=== PATIENT | female | born 1945 | race Caucasian/White ===

== ENCOUNTER 2025-09-16 13:57 | Outpatient (REF) | payer OTHER, SELFPAY | END 2025-09-16 13:58 | disposition home or self-care (01) | LOC: HO.HKASLDS 13:57 | PROVIDERS: PCP Student in an Organized Health Care Education/Training Program; Visit Provider Student in an Organized Health Care Education/Training Program | DX: R03.0 Elevated blood-pressure reading, without diagnosis of hypertension (principal); R41.3 Other amnesia; M19.90 Unspecified osteoarthritis, unspecified site; M54.50 Low back pain, unspecified; M21.612 Bunion of left foot; L60.2 Onychogryphosis; R54 Age-related physical debility; H61.21 Impacted cerumen, right ear | CPT/HCPCS: 96127; 99202; 99211 ==

== ENCOUNTER 2025-09-16 13:57 | Outpatient (AMB) | payer OTHER, SELFPAY ==
--- NOTE | 2025-09-16 14:29 | MHC.PC.OV ---
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 Wet Process Assistant Head Miller Required: No Allergies No Known Allergies Allergy (Verified 09/16/25 14:32) Medication List - Last Reconciled 09/16/25 by Germain Mcneil MD acetaminophen ER 650 mg PO Q12H Tobacco use date assessed: 09/16/25 Fall risk assessment: 1 Fall in past year Last assessed Fall Risk: 09/16/25 Dental Screening Dental Screen Date: 09/16/25 Did you have a dental visit in the last 12 months?: No Did you have a dental problem in the last 6 months where you did not have access to dental care?: No Was dental information given to patient?: No HPI HPI Comments History of Present Illness Details History of Present Illness The patient is a 80 year old female presenting for an initial visit to establish care after not seeing a doctor for approximately 50 years, prompted by concerns about memory problems and functional decline. Lack of routine medical care: The patient has not seen a doctor in about 50 years. She has no known medical history and takes no medications. She believes she may have had a Pap smear about four years ago but does not remember having a mammogram and has never had a colonoscopy or a bone scan. Memory impairment: The patient presents with memory problems, which prompted her family to bring her in. She moved in with her stepmom and niece two months ago because she requires 24-hour care, including assistance with personal hygiene. During the assessment, she was unable to state the current date or month and was unaware of a recent holiday. Musculoskeletal and pain history: The patient reports being loaded with arthritis. For the past two days, she has experienced pressure-like pain in her back that does not radiate. She has taken an agxn-lmn-fkqvtgu arthritis pill in the past but is not currently taking anything for the pain. She reports a history of a fall in a bathtub, where she hit her ribs, and a separate fall from a ladder a long time ago, which required a doctor to manipulate her ribs back into place. Recurrent cerumen impaction: The patient has a history of her ears blocking up since childhood, for which she received treatment to remove wax. She continues to experience intermittent blockage. Surgical History: - Patient denies any history of surgeries. Medications: - Patient reports no current medications. - She previously took an koev-fto-fxhtffc arthritis pill but does not know the name. 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 - Living Situation: Lived with her daughter until two months ago, now resides with her stepmom and niece who provide 24-hour care. - Functional Status: Requires assistance with activities of daily living, including washing. - Habits: History of biting her nails since she was young. - Exercise: Does not engage in any exercise. Family History: - Reports a family history of heart disease. - Denies family history of cancer. Diagnostic Results: - Vitals: Very elevated blood pressure noted during the visit. Past Medical History - Lack of medical care for approximately 50 years. 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 - Hospitalization: Only for childbirth. - Screenings: Possible Pap smear 4 years ago; denies or does not recall mammogram, colonoscopy, or bone scan. - History of falls: One fall in a bathtub and another from a ladder. - Arthritis, unspecified. Health Maintenance - Patient has not seen a physician in approximately 50 years. - At age 80, screening for cervical cancer with Pap smears and breast cancer with mammograms is no longer indicated. - Patient has never had a colonoscopy screening; family history is negative for colon cancer. - Patient has never had a bone density scan. - Comprehensive blood work was ordered for baseline health screening. [facility] Surgical History (Updated 09/16/25 @ 14:35 by Neno Galdamez CMA) No pertinent past surgical history Social History (Updated 09/16/25 @ 14:36 by Neno Galdamez CMA) Housing: House Alcohol intake: never Patient Tobacco Use Status: Current everyday Tobacco user Cigarette Packs Per Day: 0.5 e-Cigarette/Vaping Use: Never Used service: No Current occupational status: disabled Current occupational exposures/hazards: No Cognitive needs: Yes Hearing needs: Yes Vision needs: Yes Questionnaire PHQ-9 Over the last 2 weeks, how often have you been bothered by any of the following problems? 1. Little interest or pleasure in doing things: not at all 2. Feeling down, depressed, or hopeless: more than half the days 3. Trouble falling or staying asleep, or sleeping too much: more than half the days 4. Feeling tired or having little energy: not at all 5. Poor appetite or overeating: several days 6. Feeling bad about yourself - or that you are a failure or have let yourself or your family down: not at all 7. Trouble concentrating on things, such as reading the newspaper or watching television: more than half the days 8. Moving or speaking so slowly that other people could have noticed. Or the opposite - being so fidgety or restless that you have been moving around a lot more than usual: not at all 9. Thoughts that you would be better off or of hurting yourself in some way: not at all Total score: 7 Depression Screening Interpretation: Negative Depression Screening Done: Yes Source: Developed by Drs. Lan Morrow, Anabel Jaquez, Jose Dickinson and colleagues, with an educational mica from [employer]. Thrive Questionnaire I am a: Parent/Caregiver What is your living situation today?: I have a steady place to live Within the past 12 months, did the food you bought not last and you didn't have the money to get more?: Never true Within the past 12 months, did you worry whether your food would run out before you got money to buy more?: Never true Do you have trouble paying for medicines?: No Do you have trouble getting transportation to medical appointments?: No Do you have trouble paying your heating and electricity bill?: No Do you have trouble taking care of your child, family member or friend?: No Do you have trouble with day-to-day activities such as bathing, preparing meals, shopping, managing finances, etc.?: Yes Are you currently unemployed and looking for a job?: No Are you interested in more education?: No Currently or been in a relationship where the following occur: No concerns reported THRIVE Score: 0 AUDIT C Alcohol Use Questionnaire (AUDIT-C) 1. How often do you have a drink containing alcohol?: Never 3. How often do you have six or more drinks on one occasion?: Never Total Score: 0 RUDY-7 AMB Questionnaire RUDY-7 Feeling nervous, anxious, or on edge: 1 = Several days Not being able to stop or control worryin = Not at all Worrying too much about different things: 0 = Not at all Trouble relaxin = More than half the days Being so restless that it is hard to sit still: 0 = Not at all Becoming easily annoyed or irritable: 0 = Not at all Feeling afraid as if something awful might happen: 0 = Not at all Total RUDY-7 score (0-4 normal; 5-9 mild; 10-14 moderate; 15-21 severe): 3 Source: Developed by Drs. Lan Morrow, Anabel Jaquez, Jose Dickinson and colleagues, with an educational mica from [employer]. Review of Systems Narrative Review of Systems - Constitutional: Denies recent falls. - Neurological: Family reports memory problems; patient denies other neurological symptoms. - HEENT: Reports intermittent ear blockage. - Gastrointestinal: Reports normal bowel function. - Genitourinary: Reports normal urinary function. - Musculoskeletal: Reports arthritis and new onset of back pain with pressure sensation for two days. - Sleep: Reports sleeping well. 10-point ROS reviewed and negative except as noted in HPI Physical exam (Primary Care) Vital Signs: Last Vital Signs Temp 97.4 F 09/16/25 14:36 Pulse 74 09/16/25 14:36 Resp 16 09/16/25 14:36 BP 164/74 H 09/16/25 14:36 Pulse Ox 97 09/16/25 14:36 Oxygen Delivery Method Room Air 09/16/25 14:36 BMI result Body Mass Index 22.5 Tobacco/Smoking Status: Tobacco use Status Tobacco use date assessed 09/16/25 09/16/25 14:38 Patient Tobacco Use Status Current everyday Tobacco 09/16/25 14:38 e-Cigarette/Vaping Use Never Used 09/16/25 14:38 PHQ-9: PHQ-9 Score PHQ-9: Total score 7 09/16/25 15:05 Depression Screening Interpretation: Negative Currently or been in a relationship where the following occur: No concerns reported Narrative Physical Exam General: Well-appearing, in no acute distress. Vital signs: Elevated blood pressure noted. HEENT: Normocephalic, atraumatic. PERRLA, EOMI. Conjunctiva clear, sclera anicteric. Oropharynx clear, mucous membranes moist. TMs intact bilaterally. Right ear with significant ear wax buildup. Neck: Supple, no lymphadenopathy, no thyromegaly, no JVD or carotid bruits. Cardiovascular: RRR, normal S1/S2, no murmurs, rubs, or gallops. Peripheral pulses 2+ and symmetric. No edema. Respiratory: Lungs clear to auscultation bilaterally, no wheezes, rales, or rhonchi. Normal effort. Abdomen: Soft, non-tender, non-distended. Normoactive bowel sounds. No hepatosplenomegaly, no masses. MSK: Full range of motion, no joint swelling or deformity. Normal gait. Complains of back pain with pressure sensation, not radiating. Skin: Warm, dry, intact. No rashes, lesions, or pallor. Neuro: Alert and oriented x2 (disoriented to date and recent events). Cranial nerves II-XII intact. Strength 5/5 throughout. Sensation intact. Reflexes 2+ symmetric. Normal coordination and gait. Psych: Appropriate mood and affect. Normal judgment and insight. Memory issues noted. Coding Level of Care Code New Pt Level 4 (58155) Add On Problem Visit Only Diagnoses Memory impairment R41.3 Cerumen impaction H61.20 Elevated blood pressure reading R03.0 Arthritis M19.90 Low back pain M54.50 Bunion, left foot M21.612 Thickened nails L60.2 Frail elderly R54 Assessment & Plan Assessment & Plan (1) Memory impairment: Code(s): R41.3 - Other amnesia Category: Medical (2) Cerumen impaction: Code(s): H61.20 - Impacted cerumen, unspecified ear Category: Medical (3) Elevated blood pressure reading: Code(s): R03.0 - Elevated blood-pressure reading, without diagnosis of hypertension Category: Medical (4) Arthritis: Code(s): M19.90 - Unspecified osteoarthritis, unspecified site Category: Medical (5) Low back pain: Code(s): M54.50 - Low back pain, unspecified Category: Medical (6) Bunion, left foot: Code(s): M21.612 - Bunion of left foot Category: Medical (7) Thickened nails: Code(s): L60.2 - Onychogryphosis Category: Medical (8) Frail elderly: Code(s): R54 - Age-related physical debility Category: Medical Plan Consent The plan for a comprehensive blood examination was discussed, including checking white and red blood cells, hemoglobin, platelets, a comprehensive metabolic panel for liver, kidney, and electrolyte function, thyroid levels, HbA1c, a lipid panel, and screening for hepatitis B, hepatitis C, HIV, and syphilis. The patient provided verbal consent to proceed with the blood draw. Patient was informed and verbally consented to the use of an ambient scribe for clinic note documentation during this visit. Plan 1. Establishment Of Care / Wellness Visit - Ordered comprehensive blood work, including CBC, CMP, thyroid panel, HbA1c, lipid panel, and screening for hepatitis B, C, HIV, and syphilis. - Patient was advised that fasting is not required for the labs. - Referred to community nurse navigator to arrange for social support, including potential visiting nurse services, home service advisor, and durable medical equipment. - Ordered durable medical equipment including a shower chair, grab bar, and a portable bedside commode to reduce fall risk. - Scheduled follow-up in 2 weeks to review lab results and reassess. 2. Memory Impairment - Performed a brief cognitive screen which revealed disorientation to date, month, and recent events. - Comprehensive lab work will help to rule out metabolic or infectious etiologies. 3. Cerumen Impaction, Right Ear - Prescribed Debrox ear drops, instructing the patient to use 5 drops in the right ear twice a day for 5 days prior to the follow-up visit to soften the wax. - Plan for in-office ear cleaning at the follow-up visit if the impaction persists. 4. Elevated Blood Pressure Reading - Acknowledged the patient's blood pressure was very elevated but will not treat at this time due to potential for white coat hypertension. - Will monitor blood pressure trends on subsequent visits and consider providing a home monitoring kit if a trend of hypertension is observed. 5. Arthritis And Low Back Pain - Prescribed Tylenol 650 mg for pain management. - Avoided NSAIDs like ibuprofen due to unknown kidney function. 6. Bunion, Left Foot And Nail Care - Placed a referral to podiatry for management of her nails and left foot bunion. Discussion Notes I met with the patient, a 80-year-old female, and her family for her first medical visit in approximately 50 years. I explained that because she has not been seen for a long time and there is nothing acute, the first step is to perform a comprehensive blood exam to check her overall health, including blood counts, organ function, electrolytes, sugar, cholesterol, and infectious diseases, to which she verbally consented. I addressed the family's concerns about her functional status and need for support at home by referring them to our community nurse navigator, Sushma, who can assist with arranging services like a home service advisor and obtaining durable medical equipment such as a shower chair, grab bar, and bedside commode to improve safety. I noted her very elevated blood pressure but explained that I would not start medication immediately as it could be due to nervousness, and we will monitor the trend. For her complaints of arthritis pain, I prescribed Tylenol 650 mg, explaining that I am avoiding NSAIDs like ibuprofen until we have information on her kidney function. I also recommended a podiatry referral for her foot and nail care. I have scheduled a follow-up visit in two weeks to review the lab results. Patient Instructions - Please go to the lab to have your blood drawn for a comprehensive check-up; you do not need to fast (stop eating) before this test. - For your clogged right ear, use Debrox ear drops. Put 5 drops in the ear two times a day for the 5 days before your next appointment. - For pain from arthritis, you may take Tylenol 650 mg. Do not take ibuprofen at this time. - A referral will be made for you to see a foot doctor (internet marketing coordinator). - Our community nurse navigator, Sushma, will be in touch with your family to help you get services and equipment for your home, such as a shower chair, grab bar, and a toilet for your bedside. - Please return to the clinic in 2 weeks for a follow-up visit to discuss your lab results. Medical Decision Making The patient is a 80-year-old female with a complex presentation, primarily characterized by a 50-year lapse in medical care and recent onset of functional decline and memory impairment as reported by her family, who recently became her caregivers. The primary goals of this initial visit were to establish care, perform a baseline comprehensive assessment, and address immediate safety concerns. Given the lack of medical history, a broad laboratory workup (CBC, CMP, A1c, lipids, thyroid, infectious disease screen) is essential to screen for common chronic diseases and identify any reversible causes for her cognitive changes. The very elevated blood pressure is concerning, but given the context of a first visit after decades, I will monitor for a trend before initiating antihypertensive therapy to avoid treating a potential 'white coat' phenomenon. For her musculoskeletal pain, I chose acetaminophen over an NSAID due to the unknown status of her renal function, which will be evaluated in the ordered labs. [place] safety interventions include ordering durable medical equipment (shower chair, grab bar, bedside commode) to reduce her high fall risk at home and a referral to the community nurse navigator to connect the family with crucial support services. A podiatry referral is indicated for her bunion and general foot care, which is important in an elderly patient. Follow-up is scheduled in two weeks to review labs and re-assess her clinical status. Total Time Statement 30 min Total time spent caring for the patient today includes pre-visit chart review, documentation, review of laboratory and diagnostic imaging results, medication reconciliation, medically necessary evaluation, counseling on diagnoses, care coordination, ordering appropriate tests and medications, review of tests performed by other providers, reporting test results to the patient, and communication with other healthcare providers. Orders: Orders Hepatitis B Surface Antigen 09/16/25 Z13.9 - Encounter for screening, unspecified Syphilis Screen 09/16/25 Z13.9 - Encounter for screening, unspecified Comprehensive Met. Panel 09/16/25 Z13.9 - Encounter for screening, unspecified TSH reflex Free T4 09/16/25 Z13.9 - Encounter for screening, unspecified UA CC w/rflx Micro + Cult 09/16/25 Z13.9 - Encounter for screening, unspecified Vitamin B12 and Folate 09/16/25 Z13.9 - Encounter for screening, unspecified Hemoglobin A1c 09/16/25 Z13.9 - Encounter for screening, unspecified Vitamin D 25-OH (D2 and D3) 09/16/25 Z13.9 - Encounter for screening, unspecified Complete Blood Count Auto Diff 09/16/25 Z13.9 - Encounter for screening, unspecified Hepatitis C Antibody 09/16/25 Z13.9 - Encounter for screening, unspecified HIV Ab/Ag 09/16/25 Z13.9 - Encounter for screening, unspecified Lipid Panel 09/16/25 Z13.9 - Encounter for screening, unspecified Magnesium 09/16/25 Z13.9 - Encounter for screening, unspecified Hepatitis B Surface Antibody 09/16/25 Z13.9 - Encounter for screening, unspecified Referrals Nurse Navigator Referral Z71.89 - Other specified counseling Podiatry Referral L60.2 - Onychogryphosis Medications: New acetaminophen ER 650 mg PO Q12H 90 tabs 0RF carbamide peroxide 6.5% (Debrox) 5 drps otic (ear) right BID 15 mL 0RF 4 days [shower chair] As directed 1 ea 0RF R54 - Age-related physical debility [shower grab bar] As directed 1 ea 0RF R54 - Age-related physical debility [bedside commode] As directed 1 ea 0RF M19.90 - Unspecified osteoarthritis, unspecified site, R41.3 - Other amnesia, R54 - Age-related physical debility
[2025-09-16 14:36] VITALS: BP 164/74; PULSE 74; RESP 16; TEMP 36.3; O2SAT 97; BMI 22.5
== END 2025-09-16 15:19 | disposition home or self-care (01) ==
PROVIDERS: PCP Student in an Organized Health Care Education/Training Program; Visit Provider Student in an Organized Health Care Education/Training Program
DX: R41.3 Other amnesia (principal); H61.20 Impacted cerumen, unspecified ear; R03.0 Elevated blood-pressure reading, without diagnosis of hypertension; M19.90 Unspecified osteoarthritis, unspecified site; M54.50 Low back pain, unspecified; M21.612 Bunion of left foot; L60.2 Onychogryphosis; R54 Age-related physical debility

== ENCOUNTER 2025-09-20 13:54 | Outpatient (REF) | payer OTHER, SELFPAY ==
[2025-09-20 17:44] LABS: MANUAL DIFF FLAG NO
[2025-09-20 18:09] LABS: Appearance Urine Clear; Glucose Urine UA Negative (Negative); PH 5.5 (5.0-9.0); Specific Gravity - Urine 1.015 (1.005-1.025); UMIC TRIGGER UACC YES
[2025-09-20 18:12] LABS: Hematocrit 39.4 % (37.0-47.0); Hemoglobin 13.0 g/dl (12.0-16.0); Imm Gran Abs Auto 0.01 X10*3/uL (0.00-0.03); Imm Gran Pct Auto 0.1 % (0.0-0.4); Lymphocytes Absolute Auto 2.5 X10*3/uL (1.2-4.9); Mean Corpuscular HGB Conc 33.0 g/dl (31.0-35.0); Mean Corpuscular Hemoglobin 28.1 pg (27.0-33.0); Mean Corpuscular Volume 85.1 fL (80.0-98.0); NRBC Abs Auto 0.000 X10*3/uL (0.0-0.012); NRBC Pct Auto 0.0 /100WBC (0.0-0.2); Platelet Count 317 X10*3/uL (160-400); Red Blood Count 4.63 X10*6/uL (4.20-5.50); White Blood Count 7.4 X10*3/uL (4.8-10.8)
[2025-09-20 18:16] LABS: Alanine Aminotransferase 52 U/L (0-31); Albumin Level 4.7 g/dL (3.5-5.0); Alkaline Phosphatase 69 U/L (39-117); Anion Gap 12 (12-20); Aspartate Amino Transferase 34 U/L (5-31); Blood Urea Nitrogen 18 mg/dL (9-16); Calcium 9.7 mg/dL (8.4-10.2); Carbon Dioxide 26 mmol/L (22-29); Chloride 107 mmol/L (96-108); Cholesterol 290 mg/dL (<200); Estimated Glomerular Filt Rate 55; HDL Cholesterol 66 mg/dL (>40); Magnesium 2.1 mg/dL (1.6-2.6); Potassium 3.8 mmol/L (3.3-5.1); Sodium 141 mmol/L (135-145); Total Protein 8.2 g/dL (6.5-8.0); Triglycerides 380 mg/dL (<150)
[2025-09-20 18:37] LABS: Folate 6.2 ng/mL (> or = 4.0); Vitamin B12 442 pg/mL (200-900)
[2025-09-20 19:03] LABS: Free T4 (Free Thyroxine) 0.72 ng/dL (0.71-1.85)
[2025-09-21 03:39] LABS: Syphilis Screen Nonreactive (Nonreactive)
[2025-09-21 04:05] LABS: HBS Num1 0.00 mIU/mL (0-7.99); HBsAGNum1 0.34 S/CO (0.00-0.99); HIV Num 1 0.11 S/CO (0.00-0.99); Hepatitis B Surface Antigen Negative (Negative); ~HepC Num1 0.09 S/CO (0.00-0.79); ~Hepatitis B Surface Antibody NONREACTIVE (Nonreactive); ~Hepatitis C Antibody Nonreactive (Nonreactive)
== END 2025-09-20 13:55 ==
LOC: HO.HKASLDS 13:54
PROVIDERS: PCP Student in an Organized Health Care Education/Training Program; Visit Provider Student in an Organized Health Care Education/Training Program
DX: Z11.4 Encounter for screening for human immunodeficiency virus [HIV] (principal); Z11.59 Encounter for screening for other viral diseases; Z13.6 Encounter for screening for cardiovascular disorders; Z13.0 Encounter for screening for diseases of the blood and blood-forming organs and certain disorders involving the immune mechanism; Z13.29 Encounter for screening for other suspected endocrine disorder; Z13.1 Encounter for screening for diabetes mellitus; Z13.89 Encounter for screening for other disorder
CPT/HCPCS: 36415; 80053; 80061; 81001; 82306; 82607; 82746; 83036; 83735; 84439; 84443; 85025; 86706; 86780; 86803; 87340; 87389